=== PATIENT | female | born 1990 ===

== ENCOUNTER → 2023-01-19 10:43 | Outpatient (CLI) | payer BC, SELFPAY ==
--- NOTE | ~2023-01-19 | US_ITS ---
Pelvic ultrasound. Clinical History: Pelvic pain Technique: Realtime transabdominal and transvaginal scanning of the pelvis was performed. Color flow Doppler and Doppler spectral analysis were performed. Findings: The uterus is retroverted.. The endometrial stripe has a thickness of 8 mm. No focal mass is identified. The right ovary measures 3.6 x 2.4 x 2.3 cm. No significant right ovarian or adnexal mass is seen. The left ovary measures 2.2 x 2.2 x 2.0 cm. No significant left ovarian or adnexal mass is seen. Vascular flow present in both ovaries on Doppler spectral analysis. There is trace free fluid in the cul de sac. Impression: Unremarkable pelvic ultrasound. Reviewed, dictated and finalized at [facility]. Impression: Unremarkable pelvic ultrasound.
== END ==
PROVIDERS: PCP Family Medicine; Visit Provider Obstetrics & Gynecology
DX: R10.2 Pelvic and perineal pain (principal)
CPT/HCPCS: 76830; 76856